=== PATIENT | female | born 1990 | race Caucasian/White ===

== ENCOUNTER 2018-08-18 15:51 | Emergency (ER) | payer OTHER ==
[2018-08-18 15:57] VITALS: BP 121/48; PULSE 71; TEMP 98.4; BMI 26.6
--- NOTE | 2018-08-18 15:59 | PDOC ---
History of Present Illness - General Chief Complaint: Injury Stated Complaint: PAIN Time Seen by Provider: 08/18/18 15:59 History Source: Patient - History of Present Illness Initial Comments: 08/18/18 17:32 27-year-old female complaining of right forearm wrist and elbow pain after fall last night with arm outstretched. Patient reports pain worse with movement. No deformity no swelling noted. No past medical history Past History - Past Medical History Allergies/Adverse Reactions: Allergies Allergy/AdvReac Type Severity Reaction Status Date / Time No Known Allergies Allergy Verified 08/18/18 15:57 Home Medications: Ambulatory Orders NK [No Known Home Medication] 08/18/18 COPD: No - Suicide/Smoking/Psychosocial Hx Smoking History: Never smoked Information on smoking cessation initiated: No Hx Alcohol Use: No Drug/Substance Use Hx: No Review of Systems - Review of Systems Able to Perform ROS?: Yes Is the patient limited Ukrainian proficient: No Constitutional: No: Symptoms Reported, See HPI, Chills, Diaphoresis, Fever, Loss of Appetite, Malaise, Night Sweats, Weakness, Weight Stable, Unintentional Wgt. Loss, Unexplained wgt Loss, Other Musculoskeletal: Yes: Joint Pain (right forearm, elbow and wrist pain) *Physical Exam - Vital Signs Last Vital Signs Temp Pulse Resp BP Pulse Ox 98.4 F 71 18 121/48 L 98 08/18/18 15:55 08/18/18 15:55 08/18/18 15:55 08/18/18 15:55 08/18/18 15:55 - Physical Exam General Appearance: Yes: Appropriately Dressed Musculoskeletal: positive: Normal Inspection, Other (has abrasion to right palm of hand) Extremity: positive: Normal Capillary Refill, Other (able to make a fist, no deformity. able to rom with some pain) Integumentary: positive: Normal Color, Dry, Warm Neurologic: positive: Fully Oriented, Alert, Normal Mood/Affect Progress Note - Progress Note Progress Note: A: wrist sprain/ elbow pain P: xray RICE wrist splint Medical Decision Making - Medical Decision Making 08/18/18 18:10 Right elbow officially read by radiology possibility of a fracture. Patient informed of this finding. Advised to wear a sling . patient will call ortho for a follow up a payment. *DC/Admit/Observation/Transfer Diagnosis at time of Disposition: Elbow pain, right Forearm contusion Qualifiers: Encounter type: initial encounter Laterality: right Qualified Code(s): S50.11XA - Contusion of right forearm, initial encounter Wrist pain, acute Qualifiers: Laterality: right Qualified Code(s): M25.531 - Pain in right wrist - Discharge Dispostion Disposition: HOME - Referrals Referrals: Rober Livingston DO [Staff Physician] - - Patient Instructions Printed Discharge Instructions: DI for Acute Pain -- Adult Additional Instructions: Rest, ice, elevate. Keep in splint. keep in sling Please follow-up with orthopedic doctor as soon as possible Additional Instructions: * Please call your personal physician to report your Emergency Department visit and to report your progress, if any. * If there is no improvement in symptoms in 2 days call your physician. * Return to the Emergency Department for any worsening symptoms. - Post Discharge Activity Forms/Work/School Notes: Back to Work
[2018-08-18] MEDS ORDERED: DIPHTH,PERTUSS(ACELL),TET 0.5 ML DISP.SYRIN IM ONE ×2 (17:30→17:37)
[2018-08-18] MEDS ORDERED: IBUPROFEN 600 MG TABLET (FP) PO ONE ×2 (17:30→17:37)
== END 2018-08-18 17:42 | disposition home or self-care (01) ==
LOC: JERFT 15:51
PROC: 3E0234Z Introduction of Serum, Toxoid and Vaccine into Muscle, Percutaneous Approach (ICD-10-PCS; principal; 2018-08-18)
PROC: 2W3CX1Z Immobilization of Right Lower Arm using Splint (ICD-10-PCS; 2018-08-18)
DX: S50.11XA Contusion of right forearm, initial encounter (principal); M25.531 Pain in right wrist; M25.521 Pain in right elbow; W18.30XA Fall on same level, unspecified, initial encounter; Y93.89 Activity, other specified; Y92.89 Other specified places as the place of occurrence of the external cause; Y99.8 Other external cause status
CPT/HCPCS: 73070-TC-RT-FY; 73090-TC-RT-FY; 73110-TC-RT-FY; 84703; 90715; 99281-25

== ENCOUNTER 2019-04-03 15:26 | Emergency (ER) | payer OTHER ==
[2019-04-03 15:38] VITALS: TEMP 98; BMI 25.1
--- NOTE | 2019-04-03 15:39 | PDOC ---
Rapid Medical Evaluation Time Seen by Provider: 04/03/19 15:35 Medical Evaluation: Allergies Allergy/AdvReac Type Severity Reaction Status Date / Time No Known Allergies Allergy Verified 08/18/18 15:57 04/03/19 15:36 The patient presents for chest pain/discomfort for over one year. She states she came into day for increased tightness and palpitations. Exam: NAD, RRR, S1S2, (-) m/r/g Orders: EKG, labs Pt to proceed to the ER for further evaluation Discharge Disposition - Diagnosis Palpitation - Referrals - Patient Instructions - Post Discharge Activity
[2019-04-03 17:16] LABS: BASO % 0.8 % (0-2.0); EOS % 1.9 % (0-4.5); HEMOGLOBIN 14.2 GM/dL (10.7-15.3); LYMPH % 37.4 % (8-40); MCH 31.7 pg (25.7-33.7); MCHC 33.9 g/dl (32.0-36.0); MEAN CELL VOLUME 93.5 fl (80-96); MEAN PLT VOLUME 8.4 fl (7.5-11.1); NEUT % 54.9 % (42.8-82.8); PLATELET COUNT 353 K/MM3 (134-434); RBC 4.49 M/mm3 (3.60-5.2); RDW 13.2 % (11.6-15.6); WHITE BLOOD COUNT 4.9 K/mm3 (4.0-10.0)
[2019-04-03 17:40] LABS: ALBUMIN 4.5 g/dl (3.4-5.0); ALK PHOS 53 U/L (45-117); ANION GAP 6 MMOL/L (8-16); BILIRUBIN,TOTAL 0.6 mg/dL (0.2-1); BLOOD UREA NITROGEN 13.1 mg/dL (7-18); CALCIUM 9.6 mg/dL (8.5-10.1); CHLORIDE 106 mmol/L (98-107); CO2 25 mmol/L (21-32); CREATININE 0.9 mg/dL (0.55-1.3); GLUCOSE,RANDOM 113 mg/dL (74-106); POTASSIUM 3.6 mmol/L (3.5-5.1); SGOT/AST 19 U/L (15-37); SGPT/ALT 32 U/L (13-61); SODIUM 138 mmol/L (136-145); TOT PROT 9.1 g/dl (6.4-8.2)
--- NOTE | 2019-04-03 18:31 | PDOC ---
History of Present Illness - General Chief Complaint: Chest Pain Stated Complaint: CHEST PAIN Time Seen by Provider: 04/03/19 15:35 History Source: Patient Exam Limitations: No Limitations - History of Present Illness Initial Comments: 04/03/19 18:27 28-year-old female presents to ED with complaints of intermittent chest tightness associated with dizziness and shortness of breath over the past year and a half. Patient was reassured by her BRADDISHER that it was likely due to the baby growing but patient states although the baby is 8 months old now he she continues intimately discomfort worsened with emotional upset or stressed. Patient has not seen her doctor for the above and decided come to the ER today because she had intermittent palpitations this a.m while her was receiving a cystoscopy . Patient also went primary care physician and had an EKGwhich showed abnormalities and had no previous for comparison. Patient with no complaints upon my arrival including chest pain shortness of breath dizziness or weakness. Presenting Symptoms: Chest Pain, Dizziness, Short of Breath Timing/Duration: reports: intermittent Severity/Quality: reports: mild, pressure Location: reports: substernal Chest Pain Radiation: reports: no radiation Activities at Onset: reports: emotional upset Prior Chest Pain/Cardiac Workup: reports: No prior cardiac workup Associated Symptoms: Yes: Chest Pain/pressure, Dizziness, Shortness of Breath Past History - Travel Traveled outside of the country in the last 30 days: No Close contact w/someone who was outside of country & ill: No - Past Medical History Allergies/Adverse Reactions: Allergies Allergy/AdvReac Type Severity Reaction Status Date / Time No Known Allergies Allergy Verified 04/03/19 15:38 Home Medications: Ambulatory Orders NK [No Known Home Medication] 08/18/18 COPD: No - Psycho Social/Smoking Cessation Hx Smoking History: Never smoked Hx Alcohol Use: No Drug/Substance Use Hx: Yes (MARIJUANA) Patient Lives Alone: No Lives with/in: spouse/SO Review of Systems - Review of Systems Able to Perform ROS?: Yes Constitutional: No: Symptoms Reported HEENTM: No: Symptoms Reported Respiratory: Yes: Shortness of Breath Cardiac (ROS): Yes: Lightheadedness, Chest Tightness Musculoskeletal: No: Symptoms Reported Integumentary: No: Symptoms Reported Neurological: Yes: Dizziness Psychiatric: Yes: Stressors Endocrine: No: Symptoms Reported Hematologic/Lymphatic: No: Symptoms Reported *Physical Exam - Vital Signs Last Vital Signs Temp Pulse Resp BP Pulse Ox 98.0 F 80 16 107/65 97 04/03/19 15:35 04/03/19 15:35 04/03/19 15:35 04/03/19 15:35 04/03/19 15:35 - Physical Exam General Appearance: Yes: Nourished, Appropriately Dressed. No: Apparent Distress Neck: positive: Normal Thyroid Respiratory/Chest: positive: Lungs Clear, Normal Breath Sounds. negative: Chest Tender, Respiratory Distress, Accessory Muscle Use Cardiovascular: positive: Regular Rhythm, Regular Rate. negative: Murmur Gastrointestinal/Abdominal: positive: Soft. negative: Tenderness Neurologic: positive: Normal Mood/Affect (Calm), Motor Strength 5/5 Heart Score/ECG Review - ECG Intrepretation Rhythm: Regular Rhythm (Normal sinus rhythm at 69. Intervals are regular. QTc 437 ms) ED Treatment Course - LABORATORY CBC & Chemistry Diagram: 04/03/19 16:35 04/03/19 16:35 - ADDITIONAL ORDERS Additional order review: Laboratory Results 04/03/19 04/03/19 04/03/19 16:35 16:35 16:35 Sodium 138 Potassium 3.6 Chloride 106 Carbon Dioxide 25 Anion Gap 6 L BUN 13.1 Creatinine 0.9 Est GFR (CKD-EPI)AfAm 101.56 Est GFR (CKD-EPI)NonAf 87.63 Random Glucose 113 H Calcium 9.6 Magnesium 2.4 Total Bilirubin 0.6 AST 19 ALT 32 Alkaline Phosphatase 53 Creatine Kinase 119 Troponin I < 0.02 Total Protein 9.1 H Albumin 4.5 TSH 0.39 04/03/19 16:35 RBC 4.49 MCV 93.5 MCHC 33.9 RDW 13.2 MPV 8.4 Neutrophils % 54.9 Lymphocytes % 37.4 Monocytes % 5.0 Eosinophils % 1.9 Basophils % 0.8 Medical Decision Making - Medical Decision Making 04/03/19 17:33 Chief complaint: Intermittent chest tightness shortness of breath and dizziness worsened with stressors for the past 18 months patient was never seen by quenching machine operator but was her primary care doctor today who ran EKG and was concerned for "an abnormal EKG. Patient asymptomatic upon my arrival Exam: No reproducible chest pain, EKG normal sinus rhythm at 69 vital signs stable Labs, EKG ordered 04/03/19 18:34 Laboratory Tests 08/18/18 04/03/19 04/03/19 16:20 16:35 16:35 WBC 4.9 Hgb 14.2 Hct 42.0 Absolute Neuts (auto) 2.7 Sodium 138 Potassium 3.6 Chloride 106 Carbon Dioxide 25 Anion Gap 6 L BUN 13.1 Creatinine 0.9 Random Glucose 113 H Calcium 9.6 Magnesium Total Bilirubin 0.6 AST 19 ALT 32 Alkaline Phosphatase 53 Creatine Kinase 119 Troponin I < 0.02 Total Protein 9.1 H Albumin 4.5 TSH Urine HCG, Qual Negative 04/03/19 04/03/19 16:35 16:35 WBC Hgb Hct Absolute Neuts (auto) Sodium Potassium Chloride Carbon Dioxide Anion Gap BUN Creatinine Random Glucose Calcium Magnesium 2.4 Total Bilirubin AST ALT Alkaline Phosphatase Creatine Kinase Troponin I Total Protein Albumin TSH 0.39 Urine HCG, Qual Patient remains asymptomatic. Patient be discharged home with cardiology referral Discharge - Discharge Information Problems reviewed: Yes Clinical Impression/Diagnosis: Palpitation Condition: Good Disposition: HOME - Follow up/Referral Referrals: Rosalio Wang MD [Staff Physician] - - Patient Discharge Instructions Patient Printed Discharge Instructions: DI for Palpitations Additional Instructions: Please follow-up with referred quenching machine operator and bring copy of EKG with you . If your symptoms worsen prior to your follow-up please return to the ED or follow-up with your primary care physician. - Post Discharge Activity
[2019-04-03 19:38] VITALS: BP 111/69; PULSE 79
--- NOTE | 2019-04-04 09:56 | EKG ---
Test Reason : Blood Pressure : / mmHG Vent. Rate : 069 BPM Atrial Rate : 069 BPM P-R Int : 134 ms QRS Dur : 110 ms QT Int : 408 ms P-R-T Axes : 049 065 048 degrees QTc Int : 437 ms NORMAL SINUS RHYTHM INCOMPLETE RIGHT BUNDLE BRANCH BLOCK BORDERLINE ECG NO PREVIOUS ECGS AVAILABLE Confirmed by MD JOSÉ MIGUEL, LANA ([id number]) on 04/04/2019 9:55:49 AM Referred By: Confirmed By:LANA VALDEZ MD
== END 2019-04-03 18:45 | disposition home or self-care (01) ==
LOC: JER 15:26
DX: R00.2 Palpitations (principal)
CPT/HCPCS: 36415; 80053; 82550; 83735; 84443; 84484; 85025; 93005; 93010; 99284-25

== ENCOUNTER 2020-04-11 21:51 | Emergency (ER) | payer OTHER ==
[2020-04-11 22:01] VITALS: BP 113/53; PULSE 80; TEMP 98.1; BMI 23.6
[2020-04-11] MEDS ORDERED: IBUPROFEN 600 MG TABLET (FP) PO ONE ×2 (22:20→22:21)
== END 2020-04-11 22:43 | disposition home or self-care (01) ==
LOC: JER 21:51 → JERFT 21:51
DX: J02.9 Acute pharyngitis, unspecified (principal); N89.8 Other specified noninflammatory disorders of vagina
CPT/HCPCS: 87070; 87880; 99283-25